=== PATIENT | female | born 1985 | race Caucasian/White ===

== ENCOUNTER 2017-03-28 14:45 | Emergency (ER) | payer OTHER ==
[~2017-03-28] VITALS: Ht 165.1 cm; Wt 99.4 kg
[2017-03-28 14:51] VITALS: TEMP 36.7; Ht 165.1 cm; Wt 99.4 kg
[2017-03-28] MEDS ORDERED: KETOROLAC TROMETHAMINE 60 MG/2 ML VIAL IM STA (15:06)
[2017-03-28] MEDS ORDERED: CYCLOBENZAPRINE HCL 10 MG TAB PO STA (15:06)
[2017-03-28] MEDS ORDERED: OXYCODONE HCL IR 5 MG TAB (IMMEDIATE RELEASE) PO STA (15:06)
[2017-03-28] MEDS ORDERED: IBUP-1050 PO (15:17)
--- NOTE | 2017-03-28 15:57 | DIAGNOSTIC IMAGING REPORT ---
LUMBAR SPINE 5 VIEWS CLINICAL HISTORY: Low back pain. FINDINGS: 5 views of the lumbar spine are obtained. No prior studies are available for comparison at the time of dictation. The skeletal structures are well mineralized. There is no radiographic evidence of fracture or malalignment. Vertebral body height and alignment are maintained. The transverse and spinous processes are intact. There is no evidence of spondylolysis. The intervertebral disc spaces are well-maintained. The visualized bony pelvis appears intact. There is a nonobstructed abdominal bowel gas pattern. IMPRESSION: Unremarkable radiographic evaluation of the lumbosacral spine. Electronically signed by: Ravin Sofia M.D. 03/28/2017 3:56 PM Dictated Date/Time: 03/28/2017 3:56 PM
[2017-03-28 16:19] VITALS: BP 129/95; PULSE 62; O2SAT 99
--- NOTE | 2017-03-28 16:26 | EMERGENCY ROOM VISIT NOTE ---
History Report prepared by Giovani: Nikita Brown Under the Supervision of: Dr. Rigo Maxwell M.D. First contact with patient: 14:59 Chief Complaint: BACK PAIN Stated Complaint: HURT MY BACK History of Present Illness The patient is a 32 year old female who presents to the Emergency Room with complaints of worsening low back pain that started 3 months ago. Her fiance drove her here. The patient is camping in the region and is just visiting. She says that she twisted her back 3 months ago, causing this low back pain. The patient describes the pain as muscle spasms. When she gets the pain, she says that she cannot get up or walk. The patient is able to walk okay when she is not having the spasms, and she can feel her legs when she walks. She says that the pain has been worsening, and has been starting to bother her neck. The patient states that for the past 3 months she has also been getting a bit of tingling in her legs, but it only goes down to her thighs. She denies any numbness or weakness. She denies any fevers, abdominal pain, vomiting, loss of control of her bladder or bowels, or numbness in her groin area. She has been taking ibuprofen for the pain, but she did not take any today. She has a history of a hysterectomy. Source of History: patient Onset: 3 months ago Position: back (lower) Quality: other (muscle spasms) Timing: worsening Associated Symptoms: + neck pain, No fevers, No vomiting Note: Associated symptoms: Tingling in legs down to thighs. Denies loss of control of bladder or bowels, or numbness in groin area. Review of Systems See HPI for pertinent positives & negatives. A total of 10 systems reviewed and were otherwise negative. Past Medical & Surgical Medical Problems: (1) No chronic diseases present Family History No pertinent family history Social History Smoking Status: Current Every Day Smoker Marital Status: in relationship Housing Status: lives with significant other Current/Historical Medications Scheduled PRN Ibuprofen (Advil), 400 MG PO Q6 PRN for Pain Allergies Coded Allergies: Fish (Verified Allergy, Severe, ANAPHYLAXIS, 03/28/17) Shellfish (Verified Allergy, Severe, ANAPHYLAXIS, 03/28/17) Penicillins (Verified Allergy, Unknown, throat swell, 03/28/17) Tramadol (Verified Allergy, Unknown, vomiting, 03/28/17) Physical Exam Vital Signs Date Time Temp Pulse Resp B/P (MAP) Pulse Ox O2 Delivery O2 Flow Rate FiO2 03/28/17 14:51 36.7 75 18 140/97 99 Room Air Physical Exam Constitutional: Vital signs reviewed. Eyes: Pupils are equal round reactive to light. Conjunctiva are noninjected. ENT: Pharynx is clear without erythema or exudate. Mucous membranes are moist. Neck supple without meningeal signs. Respiratory: Clear to auscultation bilaterally. Breath sounds are equal bilaterally. Cardiovascular: Regular rate and rhythm. No rubs or gallops. GI: Soft, nondistended and nontender. Bowel sounds are present. Musculoskeletal: No midline tenderness to lumbosacral spine. Positive straight leg raise on right side at 45 degrees. No peripheral edema. No lower extremity tenderness. Integumentary: No cyanosis. Neurological: The patient is awake and alert. No focal deficits. Motor sensation is intact in lower extremities bilaterally. Psychiatric: Normal affect. Medical Decision & Procedures ER Provider Diagnostic Interpretation: X-ray results as stated below per interpretation by me and the radiologist: LUMBAR SPINE 5 VIEWS CLINICAL HISTORY: Low back pain. FINDINGS: 5 views of the lumbar spine are obtained. No prior studies are available for comparison at the time of dictation. The skeletal structures are well mineralized. There is no radiographic evidence of fracture or malalignment. Vertebral body height and alignment are maintained. The transverse and spinous processes are intact. There is no evidence of spondylolysis. The intervertebral disc spaces are well-maintained. The visualized bony pelvis appears intact. There is a nonobstructed abdominal bowel gas pattern. IMPRESSION: Unremarkable radiographic evaluation of the lumbosacral spine. Electronically signed by: Ravin Sofia M.D. 03/28/2017 3:56 PM Dictated Date/Time: 03/28/2017 3:56 PM Medications Administered Medications (Trade) Dose Ordered Sig/K[place]um Route Start Time Stop Time Status Last Admin Dose Admin Oxycodone HCl (Roxicodone Immediate Rel Tab) 5 mg NOW STAT PO 03/28/17 15:06 03/28/17 15:08 DC 03/28/17 15:25 5 MG Ketorolac Tromethamine (Toradol Inj) 30 mg NOW STAT IM 03/28/17 15:06 03/28/17 15:08 DC 03/28/17 15:25 30 MG ED Course 1500: The patient was evaluated in room B8. A complete history and physical exam was performed. 1506: Ordered Toradol Inj 30 mg IM, Flexeril Tab 10 mg PO, Roxicodone Immediate Rel Tab 5 mg PO. 1531: I was notified that the patient does not want Flexeril because she says it makes her nauseous. 1604: I reevaluated the patient and she continues to maintain that she did not get prescribed Suboxone this year. She even denies having a doctor or a pharmacy. The patient verbally expressed understanding and agreement of the treatment plan. The patient will be discharged. Medical Decision This is a 32-year-old female presents with low back pain. Differential diagnosis includes intervertebral disc disease, radiculopathy, pathologic fracture, compression fracture, spinal stenosis. I did perform a limited focused review of portions of the patient's old chart on the electronic medical record. The patient has had no prior visits to this hospital. Blood Pressure Screening: Patient was found to have an elevated blood pressure and was referred to their primary doctor for recheck and further treatment. Medication Reconciliation: I attest that I have personally reviewed the patient' s current medication list. I did evaluate the patient as noted above. The patient is presenting with a 3 month history of back pain worsening recently. She is neurologically intact and has no signs of cauda equina syndrome or spinal cord injury. I did treat the patient with OxyIR one tab and Toradol IM. I did order Flexeril but she refused it because she states it makes her nauseous.I did order and personally review the patient's lumbar spine x-rays as described above. There is no evidence of acute abnormality. I did reassess the patient and discussed her x- ray results with her. When asked if she was on any medications or any pain medicines she specifically said no and that she only took ibuprofen. I did look her up on the [facility] database and she had received a 30 day supply of Suboxone on March 01 of this year. When confronted with this information she continued to deny having received any Suboxone. She is did state that she was on Suboxone many years ago. I did recheck the database and verified the name and address as well as date of . The information was correct. I did discuss this with the patient who continued to deny the information. While a mistake in the database is possible I was concerned about drug-seeking behavior. I did recommend she continue taking Motrin for pain and to follow up with a physician when she gets back to her hometown for further evaluation and physical therapy. She was given return instructions as outlined below and discharged in good condition. [place] Drug Monitoring Program Search Results: patient reviewed within database Drug Monitoring Findings: Patient received Suboxone 30 day supply on March 01. Impression Primary Impression: Low back pain Scribe Attestation The scribe's documentation has been prepared under my direct and personally reviewed by me in its entirety. I confirm that the note above accurately reflects all work, treatment, procedures, and medical decision making performed by me. Departure Information Dispostion Home / Self-Care Referrals No Doctor, Assigned (PCP) Patient Instructions Back Pain - [facility], My [facility] Additional Instructions You have been examined and treated today on an emergency basis only. This is not a substitute for, or an effort to provide, complete comprehensive medical care. It is impossible to recognize and treat all injuries or illnesses in a single emergency department visit. It is therefore important that you follow up closely with your physician. Call as soon as possible for an appointment. Return for worsening symptoms or if you develop fever, vomiting, abdominal pain , loss of control of your bowel or bladder, numbness or weakness to your legs, numbness to your private area, difficulty urinating, or any other concerning symptoms. Problem Qualifiers Primary Impression: Low back pain Chronicity: acute Back pain laterality: bilateral Sciatica presence: with sciatica Sciatica laterality: bilateral sciatica Qualified Codes: M54.42 - Lumbago with sciatica, left side; M54.41 - Lumbago with sciatica, right side
== END 2017-03-28 16:23 | disposition home or self-care (01) ==
LOC: C.EDB 14:47
DX: M54.42 Lumbago with sciatica, left side (principal); F17.200 Nicotine dependence, unspecified, uncomplicated